=== PATIENT | female | born 1960 | race American Indian/Alaskan Native ===

== ENCOUNTER 2016-12-31 17:17 | Emergency (ER) | payer SELFPAY ==
--- NOTE | 2016-12-31 17:28 | Emergency Department Report ---
Chief Complaint: Chest Pain Stated Complaint: CHEST PAIN/LEFT ARM NUMB Time Seen by Provider: 12/31/16 17:24 - HPI History of Present Illness: PT c/o chest pain, intermittent since yesterday - ROS Review of Systems: + nausea + diarrhea + indigestion - Exam Physical Exam: obese female no acute resp distress lungs cta MSE screening note: Focused history and physical exam performed. Due to findings the following was ordered: labs, ekg xr ED Disposition for MSE Condition: Stable
[2016-12-31 17:54] LABS: Basophils % (Auto) 0.4 % (0.0-1.8); Eosinophils % (Auto) 0.6 % (0.0-4.3); Hematocrit 40.2 % (30.3-42.9); Hemoglobin 12.9 gm/dl (10.1-14.3); Mean Corpuscular HGB Conc 32 % (30-34); Mean Corpuscular Hemoglobin 26 pg (28-32); Mean Corpuscular Volume 81 fl (79-97); Platelet Count 262 K/mm3 (140-440); Red Blood Count 4.96 M/mm3 (3.65-5.03); White Blood Count 5.8 K/mm3 (4.5-11.0)
[2016-12-31 18:10] LABS: Alanine Aminotransferase 20 units/L (7-56); Albumin 4.5 g/dL (3.9-5); Albumin/Globulin Ratio 1.3 %; Alkaline Phosphatase 66 units/L (35-129); Anion Gap 22 mmol/L; BUN/Creatinine Ratio 15.71; Blood Urea Nitrogen 11 mg/dL (7-17); Calcium 10.1 mg/dL (8.4-10.2); Carbon Dioxide 23 mmol/L (22-30); Chloride 100.5 mmol/L (98-107); Glucose 84 mg/dL (65-100); Lipase 36 units/L (13-60); Potassium 3.7 mmol/L (3.6-5.0); Sodium 142 mmol/L (137-145); Total Protein 7.9 g/dL (6.3-8.2)
[2016-12-31 18:12] LABS: INR 0.93 (0.87-1.13)
[2016-12-31 18:13] LABS: Partial Thromboplastin Time 30.9 Sec. (24.2-36.6)
--- NOTE | 2017-01-01 09:53 | XRay Report ---
CHEST TWO VIEWS: 12/31/16 17:17:00 CLINICAL: Chest pain. COMPARISON: None FINDINGS: Normal heart and pulmonary vasculature. The lungs are clear. Aortic tortuosity.Scoliosis and degenerative changes in the spine. IMPRESSION: No acute cardiopulmonary process.
== END 2016-12-31 19:30 | disposition left against medical advice (07) ==
LOC: ED 17:17
DX: R07.9 Chest pain, unspecified (principal); Z53.21 Procedure and treatment not carried out due to patient leaving prior to being seen by health care provider
CPT/HCPCS: 36415; 71020; 80053; 83690; 84484; 85025; 85610; 85730; 93005; 93010

== ENCOUNTER 2017-04-08 18:41 | Emergency (ER) | payer SELFPAY ==
[2017-04-08 18:52] VITALS: BP 168/92
== END 2017-04-09 06:44 | disposition left against medical advice (07) ==
LOC: ED 18:41
DX: R51 Headache (principal); Z53.21 Procedure and treatment not carried out due to patient leaving prior to being seen by health care provider